=== PATIENT | male | born 1935 | race Caucasian/White ===

== ENCOUNTER 2016-10-31 01:28 | Emergency (ER) | payer MEDICARE ==
[~2016-10-31] VITALS: Ht 175.3 cm; Wt 136.4 kg
[~2016-10-31 01:28] MED LIST: AMIODARONE PO; ASPI325T6 PO; ASPIR-LOW81 MG PO; ASPIRIN 81M81 MG/TA2 PO; ASPIRIN E.C. 8181 MG PO; ATROVENT NASAL15 ML NS; ATROVENT0.018 MG/A IH; CARDIZEM120 MG PO; COUMADIN 77.5 MG/TAB PO; FLONASE NASAL S16 GM NS; GLIPIZIDE10 MG PO; GLUCOPHAGE1000 MG PO; LASIX 20MG TABL20 MG PO; LEVAQUIN 5500 MG/TA1 PO; LEVAQUIN 750MG750 M1 PO; LORATADINE D 101 T24 PO; NASACORT AQ N16.5 GM NS; NEXIUM PO; PERCOCET 325 MG1 TA2 PO; PRAVACHOL 40MG40 MG PO; PRINIVIL20 MG PO; TAMBOCOR 1100 MG/TAB PO; TAMBOCOR150 MG PO; XARELTO20 MG PO; [UNRECOGNIZED DRUG - OTHER] PO
[2016-10-31 01:40] VITALS: TEMP 97.6
[2016-10-31 01:50] LABS: BASO # 0.1 (0.0-0.2); BASO % 0.8 % (0.0-2.0); EOS # 0.4 (0.0-0.7); EOS % 4.4 % (0-4.0); GRAN # 6.6 (1.4-6.5); GRAN % 67.4 % (42.2-75.2); HEMATOCRIT 39.6 % (42.0-52.0); HEMOGLOBIN 12.4 g/dl (13.5-18.0); LYMPH # 1.6 (1.2-3.4); LYMPH % 16.7 % (20.0-51.0); MEAN CELL VOLUME 90 fl (80.0-100.0); MEAN CORPUSCULAR HEMOGLOBIN 28 pg (27.0-31.0); MEAN CORPUSCULAR HGB CONC 31 g/dl (33.0-37.0); MEAN PLATELET VOLUME 9.5 fl (7.4-10.4); MONO % 9.9 % (1.7-9.3); PLATELET COUNT 268 K/mm3 (130-400); RED BLOOD COUNT 4.38 M/mm3 (4.20-5.60); REDCELL DISTRIBUTION WIDTH-CV 17.9 % (11.5-14.5); WHITE BLOOD COUNT 9.8 K/mm3 (4.8-10.8)
[2016-10-31 01:56] LABS: INR 4.2 (0.8-3.0); PROTHROMBIN TIME 49.1 SECONDS (9.7-12.8)
[2016-10-31 01:57] LABS: PARTIAL THROMBOPLASTIN TIME 52.2 SECONDS (26.0-37.0)
[2016-10-31 02:00] LABS: ADJUSTED CALCIUM 9.5 mg/dL (8.4-10.2); ALBUMIN 3.9 gm/dL (3.5-5.0); BILIRUBIN,TOTAL 1.1 mg/dL (0.0-1.0); CALCIUM 9.4 mg/dL (8.4-10.2); CREATININE, serum 1.09 mg/dL (0.66-1.25); POTASSIUM 4.4 mmol/L (3.4-5.0); TOTAL PROTEIN 8.9 gm/dL (6.4-8.2)
[2016-10-31 02:13] LABS: ARTERIAL BLD GAS O2 SATURATION 99.2 % (92-100); ARTERIAL BLD GAS TCO2 CT 29.4; ARTERIAL BLOOD GAS BASE EXCESS 2.1 (-2-2); ARTERIAL BLOOD GAS HCO3 27.9 meq/L (22-26); ARTERIAL BLOOD GAS PHT 7.38 C (7.35-7.45); ARTERIAL BLOOD GAS pH 7.38 (7.35-7.45); OXYHEMOGLOBIN 97.4 %
[2016-10-31 02:14] LABS: ALLEN TEST YES; ALLENS TEST RESULT PASS; ARTERIAL BLOOD GAS PO2 211.6 mmHg (80-100); ARTERIAL BLOOD GAS PO2T 211.6 (80-100); ATS? YES
[2016-10-31 03:45] VITALS: BP 125/77; PULSE 80
== END 2016-10-31 03:45 | disposition short-term general hospital (02) ==
LOC: COL.ER 01:28
PROVIDERS: Emergency Medicine
DX: I61.1 Nontraumatic intracerebral hemorrhage in hemisphere, cortical (principal); G81.94 Hemiplegia, unspecified affecting left nondominant side; R47.1 Dysarthria and anarthria; I10 Essential (primary) hypertension; I48.91 Unspecified atrial fibrillation; E11.9 Type 2 diabetes mellitus without complications; F17.210 Nicotine dependence, cigarettes, uncomplicated; I25.10 Atherosclerotic heart disease of native coronary artery without angina pectoris; E66.01 Morbid (severe) obesity due to excess calories; Z79.01 Long term (current) use of anticoagulants; Z68.43 Body mass index [BMI] 50.0-59.9, adult; Z79.84 Long term (current) use of oral hypoglycemic drugs
CPT/HCPCS: J0360; J1953; J3430; J7030